=== PATIENT | male | born 1990 | race African-American/Black ===

== ENCOUNTER 2017-01-28 22:14 | Inpatient (IN) | payer MEDICAID ==
[~2017-01-28] VITALS: Ht 167.6 cm; Wt 81.6 kg
[2017-01-28] MEDS ORDERED: SODIUM CHLORIDE 0.9% 1,000 ML IV ONE (22:29)
[2017-01-28 23:28] LABS: BASOPHILS % 0.6 % (0.0-2.0); EOSINOPHILS % 2.5 % (0.0-5.0); HEMATOCRIT. 41.3 % (42.0-52.0); HEMOGLOBIN. 13.8 g/dL (14.0-18.0); LYMPHOCYTES % 26.1 % (20.0-50.0); MEAN CORPUSCULAR HEMOGLOBIN 28.8 pg (28.0-32.0); MEAN CORPUSCULAR VOLUME 85.8 fL (80.0-94.0); MEAN PLATELET VOLUME 7.7 fl (7.4-10.4); MONOCYTES % 6.7 % (2.0-8.0); NEUTROPHILS % 64.1 % (40.0-76.0); PLATELET 302 x1000/uL (130-400); RED BLOOD CELL COUNT 4.81 mill/uL (4.7-6.1)
[2017-01-28 23:38] LABS: AMMONIA 53 uMol/L (<32)
[2017-01-28 23:44] LABS: CARBON DIOXIDE 32 mEq/L (21-32); CHLORIDE 103 mEq/L (98-107); ETHANOL BLOOD < 10 mg/dL
[2017-01-28 23:45] LABS: PROTHROMBIN TIME 10.2 sec (9.4-11.6)
[2017-01-29] MEDS ORDERED: SODIUM CHLORIDE 0.9% 1000ML BAG (SEPSIS BOLUS) IV ONE (00:45)
[2017-01-29 02:07] LABS: GLUCOSE URINE NEGATIVE (NEGATIVE); KETONES URINE NEGATIVE (NEGATIVE); LEUKOCYTE ESTERASE URINE 1+ (NEGATIVE); NITRITE URINE NEGATIVE (NEGATIVE); OCCULT BLOOD URINE NEGATIVE (NEGATIVE); PH URINE 7.5 (4.5-8.0); PROTEIN URINE NEGATIVE (NEGATIVE); SPECIFIC GRAVITY URINE 1.018 (1.005-1.030)
[2017-01-29 02:23] LABS: CLARITY URINE CLOUDY (CLEAR); COLOR URINE YELLOW (YELLOW)
[2017-01-29 02:25] LABS: *AMPHETAMINES SCREEN URINE PRESUMTIVE POSITIVE (NEGATIVE); *BARBITURATES SCREEN URINE NEGATIVE (NEGATIVE); *BENZODIAZEPINES SCREEN URINE NEGATIVE (NEGATIVE); *COCAINE SCREEN URINE NEGATIVE (NEGATIVE); CANNABINOID URINE SCREEN NEGATIVE (NEGATIVE); METHADONE URINE SCREEN NEGATIVE (NEGATIVE); OPIATES URINE SCREEN NEGATIVE (NEGATIVE); PHENCYCLIDINE URINE SCREEN PRESUMTIVE POSITIVE (NEGATIVE)
[2017-01-29] MEDS ORDERED: LORAZEPAM 2MG/ML CPJ IV STA (03:51)
[2017-01-29] MEDS ORDERED: NICOTINE 7MG PATCH TD SCH ×2 (04:00→06:00)
[2017-01-29] MEDS ORDERED: ZIPRASIDONE MESYLATE 20MG/VIAL IM ONE (04:15)
[2017-01-29 07:50] VITALS: BP 136/73
[2017-01-29 08:00] VITALS: BP 136/73
== END 2017-01-29 09:25 | disposition left against medical advice (07) | DRG 52 ==
LOC: ER 22:38 → 6EST 01-29 02:40 → CANRESERV 01-29 03:54 → ENRESERV 01-29 03:54
PROVIDERS: ADMIT Family Medicine; ATTEND Family Medicine
DX: G92 Toxic encephalopathy (principal); E72.20 Disorder of urea cycle metabolism, unspecified; F15.10 Other stimulant abuse, uncomplicated; E87.6 Hypokalemia; D64.9 Anemia, unspecified
CPT/HCPCS: 36415; 70450; 71010; 80053; 80305; 80307; 80329; 81001; 82140; 82962; 85025; 85610; 93005; 96361; 96372; 96374; 99285; G0482; J2060; J3486; J7030

== ENCOUNTER 2017-01-29 09:15 | Emergency (ER) | payer MEDICAID ==
[~2017-01-29] VITALS: Ht 175.3 cm; Wt 68.0 kg
[2017-01-29 09:36] VITALS: BP 142/103
== END 2017-01-29 10:07 | disposition home or self-care (01) ==
LOC: ER 09:23
DX: T40.991A Poisoning by other psychodysleptics [hallucinogens], accidental (unintentional), initial encounter (principal); F16.10 Hallucinogen abuse, uncomplicated; T43.621A Poisoning by amphetamines, accidental (unintentional), initial encounter; F15.10 Other stimulant abuse, uncomplicated; R41.82 Altered mental status, unspecified; R45.86 Emotional lability; R03.0 Elevated blood-pressure reading, without diagnosis of hypertension; Y92.89 Other specified places as the place of occurrence of the external cause
CPT/HCPCS: 99282